=== PATIENT | male | born 1990 | race Caucasian/White ===

== ENCOUNTER → 2017-03-24 | Outpatient (CLI) | payer BC ==
[~2017-03-24] MED LIST: FLM4 PO; OXYC5TAB PO
--- NOTE | 2017-03-24 12:25 | DIAGNOSTIC IMAGING REPORT ---
CHEST 2 VIEWS ROUTINE CLINICAL HISTORY: R05 [id number] COMPARISON STUDY: 12/20/2005 FINDINGS: The bones soft tissues and hemidiaphragms are normal. The cardiomediastinal silhouette is normal. The lungs are clear. The pulmonary vasculature is normal. IMPRESSION: Negative chest. Electronically signed by: Yehuda Chinchilla M.D. 03/24/2017 12:24 PM Dictated Date/Time: 03/24/2017 12:23 PM
--- NOTE | 2017-03-24 12:26 | DIAGNOSTIC IMAGING REPORT ---
KUB CLINICAL HISTORY: R10.9 Rt flank [id number] flank pain. Nephrocalcinosis. COMPARISON STUDY: 12/16/2015 FINDINGS: The soft tissues, psoas shadows, renal outlines and intestinal gas pattern appear normal. There is no evidence for bowel obstruction. No abnormal abdominal calcifications are seen. IMPRESSION: Normal study. Electronically signed by: Yehuda Chinchilla M.D. 03/24/2017 12:25 PM Dictated Date/Time: 03/24/2017 12:25 PM
== END | disposition home or self-care (01) ==
LOC: C.RAD 12:02
PROVIDERS: ATTEND Physician Assistant Medical
DX: R05 Cough (principal); R10.9 Unspecified abdominal pain

== ENCOUNTER → 2017-04-29 | Outpatient (CLI) | payer BC ==
--- NOTE | 2017-04-29 14:31 | DIAGNOSTIC IMAGING REPORT ---
EXAMINATION: RENAL ULTRASOUND CLINICAL HISTORY: N20.1 Ureteral calculus COMPARISON STUDY: 12/16/2015 FINDINGS: The right kidney measures 12.1 cm. The left kidney measures 12.1 cm. There is no evidence of hydronephrosis. There are no renal masses. There is a 2 mm echogenic focus arising from the lower pole the right kidney suspicious for a calculus. No bladder abnormalities are visualized. Bilateral ureteral jets were visualized. IMPRESSION : 1. Suspected 2 mm lower pole right renal calculus. Otherwise normal renal ultrasound. No evidence of hydronephrosis. Electronically signed by: Booker Biswas M.D. 04/29/2017 2:29 PM Dictated Date/Time: 04/29/2017 2:28 PM
== END | disposition home or self-care (01) ==
LOC: C.ULTR 13:33
PROVIDERS: ATTEND Urology
DX: N20.1 Calculus of ureter (principal)

== ENCOUNTER → 2017-07-07 | Outpatient (CLI) | payer BC ==
--- NOTE | 2017-07-07 10:58 | DIAGNOSTIC IMAGING REPORT ---
KUB HISTORY: Right-sided kidney stones. COMPARISON: KUB 03/24/2017. FINDINGS: The bowel gas pattern is unremarkable. There are no dilated loops of small bowel to suggest an obstruction. No renal calculi. No ureteral calculi. No pneumoperitoneum or pneumatosis. IMPRESSION: No renal or ureteral stones. Electronically signed by: Diego Rodriguez M.D. 07/07/2017 10:57 AM Dictated Date/Time: 07/07/2017 10:56 AM
== END | disposition home or self-care (01) ==
LOC: C.RAD 10:40
PROVIDERS: ATTEND Nurse Practitioner Family
DX: N20.1 Calculus of ureter (principal); N23 Unspecified renal colic

== ENCOUNTER → 2017-10-24 | Outpatient (CLI) | payer OTHER ==
--- NOTE | 2017-10-24 12:51 | DIAGNOSTIC IMAGING REPORT ---
(RENAL)RETROPERITON COMP HISTORY: Nephrocalcinosis N20.0 Nephrolithiasi COMPARISON: 04/29/2017 FINDINGS: Right kidney: Maximum dimension 11.2 cm. Several small nonobstructing calcification. Largest measures 3 mm. No evidence for hydronephrosis. Left kidney: Maximum dimension 11.8 cm. Several nonobstructing left renal calcifications the largest of which measures 6 mm. Normal corticomedullary differentiation and cortical thickness. Bladder: No bladder wall thickening. The bilateral ureteral jets were identified. IMPRESSION: 1. Bilateral renal nephrocalcinosis appear to be somewhat progressive compared to the prior exam. 2. No evidence for hydronephrosis. The above report was generated using voice recognition software. It may contain grammatical, syntax or spelling errors. Electronically signed by: Yehuda Chinchilla M.D. 10/24/2017 12:50 PM Dictated Date/Time: 10/24/2017 12:48 PM
== END | disposition home or self-care (01) ==
LOC: C.ULTR 12:10
PROVIDERS: ATTEND Urology
DX: N20.0 Calculus of kidney (principal)

== ENCOUNTER → 2017-11-01 | Outpatient (CLI) | payer OTHER ==
[2017-11-01 14:49] LABS: ALBUMIN 4.3 gm/dl (3.4-5.0); BLOOD UREA NITROGEN 12 mg/dl (7-18); CALCIUM 9.5 mg/dl (8.5-10.1); CARBON DIOXIDE 30 mmol/L (21-32); CREATININE 0.82 mg/dl (0.60-1.40); GLUCOSE 105 mg/dl (70-99); PHOSPHORUS 2.4 mg/dl (2.5-4.9); SODIUM 137 mmol/L (136-145); URIC ACID 7.5 mg/dl (2.6-7.2)
== END | disposition home or self-care (01) ==
LOC: C.LAB1850 12:41
PROVIDERS: ATTEND Internal Medicine Nephrology
DX: E55.9 Vitamin D deficiency, unspecified (principal); N20.0 Calculus of kidney

== ENCOUNTER 2017-11-19 18:26 | Emergency (ER) | payer OTHER ==
[~2017-11-19] VITALS: Ht 172.7 cm; Wt 98.7 kg
[2017-11-19 18:33] VITALS: TEMP 36.9; Ht 172.7 cm; Wt 98.7 kg
--- NOTE | 2017-11-19 18:53 | DIAGNOSTIC IMAGING REPORT ---
CHEST 2 VIEWS ROUTINE CLINICAL HISTORY: 27 years-old Male presenting with cough, weakness. TECHNIQUE: PA and lateral views of the chest were obtained. COMPARISON: . FINDINGS: Cardiomediastinal silhouette normal. Lungs and pleural spaces clear. Osseous structures normal. Upper abdomen normal. IMPRESSION: 1. No acute cardiopulmonary disease. Electronically signed by: Carlos Dewitt M.D. 11/19/2017 6:52 PM Dictated Date/Time: 11/19/2017 6:51 PM
[2017-11-19] MEDS ORDERED: ALBUTEROL HFA 8 GM INHALER INH STA (19:19)
[2017-11-19] MEDS ORDERED: AZITTAB PO (19:21)
[2017-11-19] MEDS ORDERED: ACID REFLUX PILL PO (19:24)
--- NOTE | 2017-11-19 19:27 | EMERGENCY ROOM VISIT NOTE ---
History First contact with patient: 18:38 Chief Complaint: COUGH Stated Complaint: COUGH, WEAKNESS Nursing Triage Summary: patient states he has felt sick since Tuesday. Has had a loose cough and now chest feels tight and sore. states he feels weak all over History of Present Illness The patient is a 27 year old male who presents to the Emergency Room with complaints of progressively worsening productive cough and weakness. The patient reports that his symptoms started 4 days with muscle aches and chills. The patient reports that within 24 hours, he then started to develop a nonproductive cough. The patient reports minimal runny nose or throat. The patient reports that over the past 24 hours, his cough has now become productive. He reports wheezing as well. The patient denies any prior history of lung disease. He has been taking Mucinex, Tylenol PM and DayQuil without relief. Review of Systems 10 system review was performed and was negative except for pertinent positives and negatives as indicated in history of present illness Past Medical/Surgical History Medical Problems: (1) Dental caries (2) Puncture wound of hand (3) Puncture wound of hand Surgical Problems: (1) H/O external ear surgery Family History Diabetes mellitus Hypertension Kidney stones Social History Smoking Status: Never Smoker Alcohol Use: none Marital Status: single Housing Status: lives with family Occupation Status: employed Current/Historical Medications Scheduled Azithromycin (Zithromax Z-Raine), 0 PO UD Tamsulosin HCl (Tamsulosin HCl), 0.4 MG PO DAILY Scheduled PRN Oxycodone/Acetaminophen 5MG/325MG (Roxicet 5MG/325MG), 1 TAB PO Q4H PRN for moderate pain Physical Exam Vital Signs Date Time Temp Pulse Resp B/P (MAP) Pulse Ox O2 Delivery O2 Flow Rate FiO2 11/19/17 18:33 36.9 96 20 143/87 94 Room Air Physical Exam CONSTITUTIONAL: Healthy and well nourished. Alert and oriented X 3 with positive affect. Patient does not appear in any acute respiratory distress, and did not have any cough while in the emergency department. HEENT: Normocephalic, atraumatic. Pupils equal, round and reactive. Ears and nares are clear. OROPHARYNX: Minimal posterior pharyngeal erythema without tonsillar hypertrophy or exudates. NECK: Full active range of motion without discomfort. No JVD or carotid bruits. RESPIRATORY: Patient has end expiratory wheezing in all [place], without crackles , rhonchi or stridor. CARDIOVASCULAR: Regular rate and rhythm with no murmurs, rubs or gallops. GASTROINTESTINAL: Bowel sounds present in all quadrants. Soft and nontender to palpation. MUSCULOSKELETAL: Full range of motion of all joints without discomfort. INTEGUMENTARY: No rash or other significant dermatologic conditions noted. NEUROLOGIC: No focal neurologic deficits noted. Medical Decision & Procedures ER Provider Diagnostic Interpretation: My interpretation of a two-view chest x-ray does not show any consolidations or pneumothorax. Radiologist report is as follows: CHEST 2 VIEWS ROUTINE CLINICAL HISTORY: 27 years-old Male presenting with cough, weakness. TECHNIQUE: PA and lateral views of the chest were obtained. COMPARISON: . FINDINGS: Cardiomediastinal silhouette normal. Lungs and pleural spaces clear. Osseous structures normal. Upper abdomen normal. IMPRESSION: 1. No acute cardiopulmonary disease. ED Course Patient history and physical exam were performed. Nurse's notes were reviewed. Vital signs were reviewed. Blood pressure is 143/87. O2 saturation was 94% on room air, and the patient is not tachycardic. I did recheck his O2 saturation when he was in the room, and was 97% on room air. A two-view chest x -ray was normal. The patient was advised that his symptoms are likely secondary to bronchitis. I did explain the possibility of influenza, however he is too late into the disease process for treatment. Because his symptoms are now worsening, I favor a bacterial bronchitis at this point. The patient will be provided a prescription for a Z-Raine. The patient was dispensed a Ventolin metered-dose inhaler with AeroChamber. The patient was administered 2 puffs while in the emergency department, with instructions for the AeroChamber use. The patient was encouraged to continue with Mucinex, Robitussin-DM, Tylenol and Motrin as needed for additional symptomatic relief. He was encouraged to follow-up with his PCP if symptoms are not improving within the next 5-7 days. The patient was happy with plan of care, and voiced understanding of all discharge instructions. Medical Decision See previous section Medication Reconcilliation Current Medication List: was personally reviewed by me Blood Pressure Screening Patient's blood pressure: Normal blood pressure Impression Primary Impression: Acute bronchitis Departure Information Prescriptions Azithromycin (ZITHROMAX Z-RAINE) 250 Mg Tab 0 PO UD, #1 PKT 2 TABS DAY 1, THEN 1 TAB DAILY FOR 4 DAYS Prov: Álvaro Sparks PA 11/19/17 Referrals Brandon Adkins M.D. (PCP) Patient Instructions [facility] Problem Qualifiers Primary Impression: Acute bronchitis Bronchitis organism: unspecified organism Qualified Codes: J20.9 - Acute bronchitis, unspecified
[2017-11-19 19:30] VITALS: BP 130/81; PULSE 87; O2SAT 96
== END 2017-11-19 19:32 | disposition home or self-care (01) ==
LOC: C.EDB 18:27 → C.EDD 19:32
DX: J20.9 Acute bronchitis, unspecified (principal); Z83.3 Family history of diabetes mellitus; Z82.49 Family history of ischemic heart disease and other diseases of the circulatory system; Z84.1 Family history of disorders of kidney and ureter; Z79.899 Other long term (current) drug therapy

== ENCOUNTER → 2017-12-07 | Outpatient (CLI) | payer OTHER ==
[~2017-12-07] MED LIST changes: +ACID REFLUX PILL PO; -FLM4 PO
--- NOTE | 2017-12-07 13:31 | DIAGNOSTIC IMAGING REPORT ---
ABD/PELVIS WITHOUT FOR STONE CLINICAL HISTORY: 27 years-old Male presenting with N20.1 Ureteric stone. TECHNIQUE: Multidetector CT of the abdomen and pelvis was performed without the use of intravenous contrast. IV contrast: None. A dose lowering technique was used consistent with the principles of ALARA (as low as reasonably achievable). COMPARISON: 12/13/2015. CT DOSE (mGy.cm): The estimated cumulative dose is 1247.83 mGy.cm. FINDINGS: Asset Protection Specialist topogram: Unremarkable. Lung bases: Lungs and pleural spaces clear. Normal heart size. No pericardial or pleural effusion. Liver: Normal morphology. Density consistent with hepatic steatosis. Biliary: No gross biliary ductal dilatation allowing for noncontrast technique. Normal gallbladder. Pancreas: Normal noncontrast appearance. Spleen: Normal noncontrast appearance. Splenule noted. Adrenal glands: Normal noncontrast appearance. Kidneys and ureters: Normal. No hydronephrosis. Bladder: Normal. Pelvic organs: Prostate and seminal vesicles normal. Intramural fat deposition in the colon, nonspecific but can be seen in the setting of chronic inflammation, chronic steroid use, or obesity. The appendix is normal. No bowel obstruction. Bowel: Normal. No bowel obstruction. Peritoneal cavity: No free fluid or intraperitoneal gas. Lymph nodes: No gross lymphadenopathy allowing for noncontrast technique. Vasculature: Normal noncontrast appearance. Abdominal wall: Normal. Musculoskeletal: Normal. IMPRESSION: 1. No nephrolithiasis or hydronephrosis. The previously noted right ureteral calculus is no longer seen consistent with passage. 2. Hepatic steatosis. Correlate with liver function tests to exclude steatohepatitis as a cause for abdominal pain. Electronically signed by: Carlos Dewitt M.D. 12/07/2017 1:29 PM Dictated Date/Time: 12/07/2017 1:24 PM
== END | disposition home or self-care (01) ==
LOC: C.CTS 12:45
PROVIDERS: ATTEND Urology
DX: N20.1 Calculus of ureter (principal); K76.0 Fatty (change of) liver, not elsewhere classified

== ENCOUNTER 2017-12-16 10:39 | Emergency (ER) | payer OTHER ==
[2017-12-16 10:42] VITALS: TEMP 36.5
[2017-12-16] MEDS ORDERED: ERGO500037 PO (11:35)
[2017-12-16] MEDS ORDERED: DTRSR/10 PO (11:35)
[2017-12-16] MEDS ORDERED: PANT40TA PO (11:35)
[2017-12-16] MEDS ORDERED: TAMS0.4C38 PO (11:35)
[2017-12-16] MEDS ORDERED: IBUP-1451 PO (11:35)
[2017-12-16] MEDS ORDERED: PHEN-876 PO (11:35)
[2017-12-16 11:38] LABS: BASO % 0.5 %; BASO ABS # 0.03 K/uL (0-0.2); EOS % 0.9 %; EOS ABS # 0.05 K/uL (0-0.5); HEMATOCRIT 42.2 % (42-52); HEMOGLOBIN 15.1 g/dL (14.0-18.0); IG# 0.01 K/uL (0.00-0.02); LYMPH % 28.1 %; LYMPH ABS # 1.54 K/uL (1.2-3.4); MEAN CELL VOLUME 84.2 fL (80-100); MEAN CORPUSCULAR HEMOGLOBIN 30.1 pg (25-34); MEAN CORPUSCULAR HGB CONC 35.8 g/dl (32-36); MEAN PLATELET VOLUME 9.8 fL (7.4-10.4); MONO ABS # 0.55 K/uL (0.11-0.59); NEUT % 60.3 %; NEUT ABS # 3.31 K/uL (1.4-6.5); PLATELET COUNT 244 K/uL (130-400); RED CELL DISTRIBUTION WIDTH CV 12.4 % (11.5-14.5); RED CELL DISTRIBUTION WIDTH SD 37.6 fL (36.4-46.3); WHITE BLOOD COUNT 5.49 K/uL (4.8-10.8)
[2017-12-16 11:54] LABS: ALBUMIN 4.2 gm/dl (3.4-5.0); ALT/SGPT 84 U/L (12-78); AST/SGOT 38 U/L (15-37); BLOOD UREA NITROGEN 10 mg/dl (7-18); CALCIUM 9.2 mg/dl (8.5-10.1); CARBON DIOXIDE 25 mmol/L (21-32); CREATININE 0.79 mg/dl (0.60-1.40); GLUCOSE 89 mg/dl (70-99); LIPASE 151 U/L (73-393); POTASSIUM 3.8 mmol/L (3.5-5.1); SODIUM 137 mmol/L (136-145)
[2017-12-16] MEDS ORDERED: KETOROLAC TROMETHAMINE 15 MG/ML VIAL IV STA (11:54)
[2017-12-16 11:57] LABS: ALKALINE PHOSPHATASE 77 U/L (45-117); TOTAL PROTEIN 8.1 gm/dl (6.4-8.2)
[2017-12-16] MEDS ORDERED: HYDR-5688 PO (13:11)
--- NOTE | 2017-12-16 13:13 | EMERGENCY ROOM VISIT NOTE ---
History First contact with patient: 10:51 Chief Complaint: KIDNEY STONE Stated Complaint: KIDNEY PAIN FROM STONES History of Present Illness The patient is a 27 year old male who presents to the Emergency Room with complaints of bilateral flank pain. The patient states he has a history of stones in both of his kidneys. He has had x-rays and other imaging studies which have showed this. He states he has had pain in both sides of his back for the past 4 days. He has been taking ibuprofen which was helping initially, but is no longer improving his pain. He rates his discomfort as 7/10. He states that he has passed some kidney stones over the past few weeks. He sees a urologist and has seen a turn supervisor. He has been taking Flomax and anti- inflammatories. He states that the right side at times radiates into his abdomen. He denies urinary symptoms, nausea/vomiting or changes in bowel movements. He reports that most recently, he had a test done which showed an 8 mm kidney stone in 1 of the kidneys. Review of Systems A complete 10 point review of systems was reviewed with the patient with pertinent positives and negatives as per history of present illness. All else were negative. Past Medical/Surgical History Medical Problems: (1) Dental caries (2) Puncture wound of hand (3) Puncture wound of hand Surgical Problems: (1) H/O external ear surgery Family History Diabetes mellitus Hypertension Kidney stones Social History Smoking Status: Never Smoker Alcohol Use: none Marital Status: single Housing Status: lives with family Occupation Status: employed Current/Historical Medications Scheduled Ergocalciferol (Vitamin D 87025 Unit), 50,000 UNIT PO WK Oxybutynin Chloride (Oxybutynin Chloride ER), 1 TAB PO DAILY Pantoprazole (Protonix), 40 MG PO DAILY Tamsulosin Hcl (Flomax), 0.4 MG PO DAILY Scheduled PRN Hydrocodone/Acetaminophen 5MG/325MG ([place] 5MG/325MG), 1 TABLET PO Q4H PRN for Pain Ibuprofen Tab (Motrin), 800 MG PO Q8H PRN for Pain Phenazopyridine HCl (Pyridium), 200 MG PO TID PRN for Bladder pain Physical Exam Vital Signs Date Time Temp Pulse Resp B/P (MAP) Pulse Ox O2 Delivery O2 Flow Rate FiO2 12/16/17 13:23 90 16 112/77 96 12/16/17 12:14 81 16 125/71 98 Room Air 12/16/17 11:15 77 16 136/76 96 Room Air 12/16/17 10:42 36.5 78 20 155/86 100 Room Air Physical Exam VITALS: Vitals are noted on the nurse's note and reviewed by myself. Vital signs stable. GENERAL: This is a 27-year-old male, in no acute distress, nondiaphoretic, well- developed well-nourished. SKIN: The skin was without rashes. EARS: External auditory canals clear, tympanic membranes pearly lopez without erythema or effusion bilaterally. EYES: Pupils equal round and reactive to light and accommodation. MOUTH: Mucous membranes moist. Tonsils are not enlarged. Pharynx without erythema or exudate. HEART: Regular rate and rhythm without murmurs gallops or rubs. LUNGS: Clear to auscultation bilaterally without wheezes, rales or rhonchi. ABDOMEN: Positive bowel sounds x 4. Soft, nontender to palpation. MUSCULOSKELETAL: Mild tenderness to palpation bilateral mid back/CVA. NEURO: Patient was alert and oriented to person place and time. Medical Decision & Procedures Laboratory Results 12/16/17 11:15 Red Blood Count 5.01, Mean Corpuscular Volume 84.2, Mean Corpuscular Hemoglobin 30.1, Mean Corpuscular Hemoglobin Concent 35.8, Mean Platelet Volume 9.8, Neutrophils (%) (Auto) 60.3, Lymphocytes (%) (Auto) 28.1, Monocytes (%) (Auto) 10.0, Eosinophils (%) (Auto) 0.9, Basophils (%) (Auto) 0.5, Neutrophils # (Auto ) 3.31, Lymphocytes # (Auto) 1.54, Monocytes # (Auto) 0.55, Eosinophils # (Auto ) 0.05, Basophils # (Auto) 0.03 12/16/17 11:15 Test 12/16/17 11:15 12/16/17 12:30 White Blood Count 5.49 K/uL (4.8-10.8) Red Blood Count 5.01 M/uL (4.7-6.1) Hemoglobin 15.1 g/dL (14.0-18.0) Hematocrit 42.2 % (42-52) Mean Corpuscular Volume 84.2 fL (80-100) Mean Corpuscular Hemoglobin 30.1 pg (25-34) Mean Corpuscular Hemoglobin Concent 35.8 g/dl (32-36) Platelet Count 244 K/uL (130-400) Mean Platelet Volume 9.8 fL (7.4-10.4) Neutrophils (%) (Auto) 60.3 % Lymphocytes (%) (Auto) 28.1 % Monocytes (%) (Auto) 10.0 % Eosinophils (%) (Auto) 0.9 % Basophils (%) (Auto) 0.5 % Neutrophils # (Auto) 3.31 K/uL (1.4-6.5) Lymphocytes # (Auto) 1.54 K/uL (1.2-3.4) Monocytes # (Auto) 0.55 K/uL (0.11-0.59) Eosinophils # (Auto) 0.05 K/uL (0-0.5) Basophils # (Auto) 0.03 K/uL (0-0.2) RDW Standard Deviation 37.6 fL (36.4-46.3) RDW Coefficient of Variation 12.4 % (11.5-14.5) Immature Granulocyte % (Auto) 0.2 % Immature Granulocyte # (Auto) 0.01 K/uL (0.00-0.02) Anion Gap 7.0 mmol/L (3-11) Estimated GFR () 144.7 Estimated GFR (Non- 124.8 BUN/Creatinine Ratio 13.1 (10-20) Calcium Level 9.2 mg/dl (8.5-10.1) Total Bilirubin 0.8 mg/dl (0.2-1) Aspartate Amino Transf (AST/SGOT) 38 U/L (15-37) Alanine Aminotransferase (ALT/SGPT) 84 U/L (12-78) Alkaline Phosphatase 77 U/L (45-117) Total Protein 8.1 gm/dl (6.4-8.2) Albumin 4.2 gm/dl (3.4-5.0) Globulin 3.9 gm/dl (2.5-4.0) Albumin/Globulin Ratio 1.1 (0.9-2) Lipase 151 U/L (73-393) Urine Color YELLOW Urine Appearance CLEAR (CLEAR) Urine pH 8.0 (4.5-7.5) Urine Specific [employer] 1.021 (1.000-1.030) Urine Protein NEG (NEG) Urine Glucose (UA) NEG (NEG) Urine Ketones NEG (NEG) Urine Occult Blood NEG (NEG) Urine Nitrite NEG (NEG) Urine Bilirubin NEG (NEG) Urine Urobilinogen NEG (NEG) Urine Leukocyte Esterase NEG (NEG) Medications Administered Medications (Trade) Dose Ordered Sig/Agueda Route Start Time Stop Time Status Last Admin Dose Admin Ketorolac Tromethamine (Toradol Inj) 15 mg NOW STAT IV 12/16/17 11:54 12/16/17 11:55 DC 12/16/17 12:13 15 MG Medical Decision Differential diagnosis includes UTI, kidney stone, pyelonephritis, among others. The patient is a 27-year-old male who presents today complaining of bilateral flank pain. Patient reports a history of kidney stones. I did review previous records. Patient was seen here 9 days ago and had a noncontrast CT scan which showed no kidney stones or hydronephrosis. Patient does report that in the past , stones have not been visible on x-ray but have only been shown on ultrasound. Patient certainly may have a radiolucent stone, however I do not feel additional imaging is necessary today. Labs revealed no leukocytosis, anemia or concerning electrolyte abnormalities. Urinalysis was not suggestive of infection. No blood in the urine. Patient has had infrequent visits to the ED and I did feel it was reasonable to give him a small amount of pain medication at this time pending follow-up with urology. He was advised to contact them today to schedule follow-up regarding the stones. If he does have radiolucent stones in the kidneys, he may be a candidate for lithotripsy or other procedure. The patient's case was reviewed with Dr. Loredo, ED attending physician, who agreed with my assessment and treatment plan. Based on the patient's presentation and work up, I feel the patient is stable for outpatient treatment. The patient was educated to return to the emergency department for any worsening of their current condition or new/concerning symptoms. He will follow up with urology. [place] Drug Monitoring Program Search Results: patient reviewed within database, no issues identified Medication Reconcilliation Current Medication List: was personally reviewed by me Blood Pressure Screening Patient's blood pressure: Normal blood pressure Impression Primary Impression: Bilateral flank pain Departure Information Dispostion Home / Self-Care Condition GOOD Prescriptions Hydrocodone/Acetaminophen 5MG/325MG ([place] 5MG/325MG) Tab 1 TABLET PO Q4H Y for Pain, #8 TAB For Initial Treatment Prov: Rowan Gregory .FABY 12/16/17 Referrals Brandon Adkins M.D. (PCP) Panchito Dupont II., DO Patient Instructions My [facility] Additional Instructions You have been treated in the Emergency Department today for flank pain. You have been prescribed [place] to be used for pain control. This is a narcotic medication. You cannot drive or consume alcohol while on this medicine. This medicine should only be used for pain that cannot be controlled with over-the- counter pain medicines. For pain control, you can use the following [id number] medicines (if >12 yo): - Regular strength (325mg/tab) Tylenol (acetaminophen) 2 tabs every 4-6 hours as needed. Do not exceed 12 tablets in a 24 hour period. Avoid taking more than 4 grams (4000 mg) of Tylenol per day. This includes any other sources of acetaminophen you may take on a regular basis. - Regular strength (200 mg/tab) Advil (ibuprofen) 1-2 tabs every 4-6 hours as needed. Do not exceed a dose of 3200 mg per day. Contact your urologist to schedule a follow up appointment. Return to the Emergency Department if your symptoms persist despite the treatment plan outlined above or if you develop the following symptoms: intractable pain, fever, chills, or large amounts of blood in your urine.
[2017-12-16 13:23] VITALS: BP 112/77; PULSE 90; O2SAT 96
== END 2017-12-16 13:22 | disposition home or self-care (01) ==
LOC: C.EDB 10:40 → C.EDC 13:22
DX: R10.9 Unspecified abdominal pain (principal); Z87.442 Personal history of urinary calculi; Z84.1 Family history of disorders of kidney and ureter

== ENCOUNTER → 2017-12-27 | Outpatient (CLI) | payer OTHER ==
[~2017-12-27] MED LIST changes: -ACID REFLUX PILL PO; +DTRSR/10 PO; +ERGO500037 PO; +HYDR-5688 PO; +IBUP-1451 PO; -OXYC5TAB PO; +PANT40TA PO; +PHEN-876 PO; +TAMS0.4C38 PO
[2017-12-27 12:33] LABS: BASO % 0.3 %; BASO ABS # 0.03 K/uL (0-0.2); EOS % 1.3 %; EOS ABS # 0.13 K/uL (0-0.5); HEMATOCRIT 44.2 % (42-52); HEMOGLOBIN 15.2 g/dL (14.0-18.0); IG# 0.09 K/uL (0.00-0.02); LYMPH % 22.7 %; LYMPH ABS # 2.23 K/uL (1.2-3.4); MEAN CELL VOLUME 87.4 fL (80-100); MEAN CORPUSCULAR HGB CONC 34.4 g/dl (32-36); MEAN PLATELET VOLUME 10.2 fL (7.4-10.4); MONO % 9.5 %; MONO ABS # 0.93 K/uL (0.11-0.59); NEUT % 65.3 %; PLATELET COUNT 291 K/uL (130-400); RED CELL DISTRIBUTION WIDTH CV 12.7 % (11.5-14.5); RED CELL DISTRIBUTION WIDTH SD 40.2 fL (36.4-46.3); WHITE BLOOD COUNT 9.81 K/uL (4.8-10.8)
[2017-12-27 12:44] LABS: ALT/SGPT 44 U/L (12-78); BLOOD UREA NITROGEN 17 mg/dl (7-18); CALCIUM 9.2 mg/dl (8.5-10.1); CARBON DIOXIDE 29 mmol/L (21-32); CREATININE 0.87 mg/dl (0.60-1.40); GLUCOSE 90 mg/dl (70-99); POTASSIUM 4.2 mmol/L (3.5-5.1); SODIUM 136 mmol/L (136-145)
[2017-12-27 12:47] LABS: ALKALINE PHOSPHATASE 65 U/L (45-117); AST/SGOT 18 U/L (15-37); TOTAL PROTEIN 7.4 gm/dl (6.4-8.2)
[2017-12-27 12:53] LABS: MONOSPOT NEG (NEG)
[2017-12-28 14:23] LABS: EBV EARLY ANTIGEN AB < 9.00 U/ML
== END | disposition home or self-care (01) ==
LOC: C.LABBFT 07:44
PROVIDERS: ATTEND Internal Medicine
DX: N20.1 Calculus of ureter (principal); R10.9 Unspecified abdominal pain; M25.50 Pain in unspecified joint; J02.9 Acute pharyngitis, unspecified